=== PATIENT | male | born 1965 | race Caucasian/White ===

== ENCOUNTER 2017-10-07 01:43 | Inpatient (IN) | payer SELFPAY ==
[2017-10-07] MEDS: SUCCINYLCHOLINE CHLORIDE 100 MG/5 ML SYG IV (02:02)
[2017-10-07] MEDS: SODIUM CHLORIDE 0.9% 500 ML BAG IV* (02:02)
[2017-10-07] MEDS ORDERED: PROPOFOL 100 ML (02:13)
[2017-10-07 02:32] LABS: ADD MAN DIFF? NO
[2017-10-07 02:57] LABS: INR 3.91; PT RATIO 3.1
[2017-10-07 02:58] LABS: PARTIAL THROMBOPLASTIN TIME 37.5 Sec (25.0-35.0)
[2017-10-07] MEDS: PROPOFOL 100 ML IV (03:42)
[2017-10-07] MEDS: NORepinephrine 8MG/250 ML (PMX 250 ML IV ×2 (03:43→07:21)
[2017-10-07] MEDS: VECURONIUM 100 MG in DEXTROSE 5% 100 ML IV (03:44)
[2017-10-07 04:01] LABS: AADO2 Arterial 384.8 mmHg (7.0-24.0); Allen Test ACCEPTAB; Arterial Base Excess -21.9 mmol/L (-3.0-3); Arterial Blood Gas Oxygen Sat 99.5 mmHG (95.0-98.0); Arterial COHb 0.8 % (0.0-3.0); Arterial Fraction of Oxyhgb 96.5 % (93.0-99.0); Arterial HCO3 6.8 mmol/L (22.0-26.0); Arterial MetHb 2.2 % (0.0-1.5); Arterial pCO2 26.6 mmhg (35-45); Blood Gas Low PEEP Setting 0 cmH2O; MODE VENT - AC/VC+; Site Right Radial
[2017-10-07 04:17] LABS: ABNORMAL IP MESSAGE 1; EOSINOPHILS # 0.1 10^3/ul (0.0-0.5); EOSINOPHILS % 0.6 % (0.0-7.0); HEMATOCRIT 12.4 % (42.0-52.0); LYMPHOCYTES # 4.1 10^3/ul (0.8-2.9); LYMPHOCYTES % 24.9 % (15.0-51.0); MEAN CORPUSCULAR HEMOGLOBIN 36.6 pg (29.0-33.0); MEAN CORPUSCULAR HGB CONC 29.8 g/dl (32.0-37.0); MEAN CORPUSCULAR VOLUME 122.8 fl (82.0-101.0); MEAN PLATELET VOLUME 13.2 fl (7.4-10.4); MONOCYTE # 1.4 10^3/ul (0.3-0.9); MONOCYTES % 8.4 % (0.0-11.0); NEUTROPHIL # 10.4 10^3/ul (1.6-7.5); NEUTROPHILS % 63.8 % (39.0-77.0); NUCLEATED RED BLOOD CELLS # 0.2 10^3/ul (0.0-0.0); NUCLEATED RED BLOOD CELLS% 1.4 /100WBC (0.0-0.0); PLATELET COUNT 99 10^3/UL (140-415); POSITIVE DIFF @See below; RED BLOOD COUNT 1.01 10^6/ul (4.70-6.10); RED CELL DISTRIBUTION WIDTH 17.8 % (11.5-14.5)
[2017-10-07 04:17] LABS: WHITE BLOOD COUNT 16.4 10^3/ul (4.8-10.8)
[2017-10-07] MEDS ORDERED: DOPamine-D5W 1.6 MG/ML 250 ML ×2 (04:21→08:20)
[2017-10-07 04:27] LABS: HEMOGLOBIN 3.7 g/dl (14.0-18.0)
[2017-10-07 04:28] LABS: PATH REVIEW? YES-PATH TO CONFIRM
[2017-10-07 04:30] LABS: ALANINE AMINOTRANSFERASE 53 IU/L (13-69); ALBUMIN 3.2 g/dl (3.3-4.9); ALKALINE PHOSPHATASE 58 IU/L (42-121); ASPARTATE AMINO TRANSFERASE 115 IU/L (15-46); BILIRUBIN,INDIRECT 6.2 mg/dl (0-1.1); BILIRUBIN,TOTAL 8.1 mg/dl (0.2-1.3); BLOOD UREA NITROGEN 18 mg/dl (7-20); CALCIUM 7.9 mg/dl (8.4-10.2); CHLORIDE 89 mmol/L (97-110); CREATININE 1.33 mg/dl (0.61-1.24); GLUCOSE 101 mg/dl (70-220); MAGNESIUM 2.2 mg/dl (1.7-2.5); PHOSPHORUS 6.9 mg/dl (2.5-4.9); POTASSIUM 5.4 mmol/L (3.5-5.1); SODIUM 125 mmol/L (135-144); TOTAL PROTEIN 7.2 g/dl (6.1-8.1)
[2017-10-07 04:33] LABS: TROPONIN-I 0.022 ng/ml (0.00-0.12)
[2017-10-07 04:34] LABS: PROTIME 40.1 Sec (11.9-14.9)
[2017-10-07 04:45] LABS: ANION GAP 36 (8-16); CARBON DIOXIDE < 5 mmol/L (21-31)
[2017-10-07] MEDS ORDERED: IPRATROPIUM (HFA) 12.9 GM INHALER INH (05:00)
[2017-10-07] MEDS ORDERED: ALBUTEROL HFA 8 GM INHALER INH (05:00)
[2017-10-07] MEDS ORDERED: ACETAMINOPHEN 650MG/20.3ML CUP PO (05:00)
[2017-10-07 05:21] LABS: ANISOCYTOSIS 3+ (0-0); BAND NEUTROPHILS #M 1.6 10^3/ul (0.0-0.6); BAND NEUTROPHILS % (M) 10 % (0-4); EOSINOPHILS % (M) 2 % (0-7); ERYTHROBLAST% (NRBC) (M) 4 % (0-0); LYMPHOCYTES #M 4.5 10^3/ul (0.8-2.9); LYMPHOCYTES % (M) 28 % (15-51); MONOCYTE #M 1.6 10^3/ul (0.3-0.9); MONOCYTES % (M) 10 % (0-11); PLATELET ESTIMATE DECREASED; POIKILOCYTOSIS 3+ (0-0); POLYCHROMASIA 3+ (0-0); SEG NEUT #M 8.5 10^3/ul (1.6-7.5); SEGMENTED NEUTROPHILS (M) % 50 % (39-77); SMUDGE%M 4 % (0-0)
[2017-10-07 05:28] LABS: IMMEDIATE SPIN CROSSMATCH 1 4
[2017-10-07] MEDS ORDERED: NA BICARBONATE 8.4% 50 ML SYG ×4 (05:42→07:00)
[2017-10-07] MEDS: SODIUM BICARBONATE (IV ADD) 150 MEQ in DEXTROSE 5% 850 ML IV (05:47)
[2017-10-07] MEDS: VASOPRESSIN 60 UNIT in DEXTROSE 5% 57 ML IV (05:47)
[2017-10-07] MEDS: PANTOPRAZOLE 40 MG INJ IV (05:54)
[2017-10-07 06:06] LABS: HAAIG REFLEX REFLEX FILED
[2017-10-07 06:50] LABS: PARTIAL THROMBOPLASTIN TIME 58.6 Sec (25.0-35.0); PROTIME 61.9 Sec (11.9-14.9); PT RATIO 4.8
[2017-10-07 06:50] LABS: ACETAMINOPHEN < 10.0 ug/ml (10.0-30.0)
[2017-10-07] MEDS ORDERED: PHENYLephrine 20MG IN 250 ML 250 ML IV (07:00)
[2017-10-07] MEDS ORDERED: EPINEPHrine 0.1 MG/ML SYG (07:00)
[2017-10-07 07:05] LABS: LACTATE DEHYDROGENASE 1019 IU/L (313-618)
[2017-10-07 07:15] LABS: LACTIC ACID 22.1 mmol/L (0.5-2.0)
[2017-10-07 07:24] LABS: HEPATITIS B SURFACE ANTIGEN NEGATIVE (NEGATIVE)
[2017-10-07] MEDS: PHENYLephrine 40 MG in DEXTROSE 5% 496 ML IV ×2 (07:34→09:50)
[2017-10-07 07:38] LABS: HEPATITIS B SURFACE ANTIBODY NEGATIVE (NEGATIVE)
[2017-10-07 07:41] LABS: HEPATITIS B CORE ANTIBODY NEGATIVE (NEGATIVE); HEPATITIS C VIRAL ANTIBODY NEGATIVE (NEGATIVE); HIV 1&2 ANTIBODY NEGATIVE (NEGATIVE)
[2017-10-07 07:47] LABS: INR 6.84
[2017-10-07 08:25] LABS: CARCINOEMBRYONIC ANTIGEN 4.9 ng/ml (0.0-5.0)
[2017-10-07] MEDS: DOPamine-D5W 1.6 MG/ML 250 ML IV (08:36)
[2017-10-07 08:54] LABS: SECOND ABO/RH TYPE 1 1
[2017-10-07 08:55] LABS: ALANINE AMINOTRANSFERASE 74 IU/L (13-69); ALBUMIN 1.7 g/dl (3.3-4.9); ALBUMIN/GLOBULIN RATIO 0.89; ALKALINE PHOSPHATASE 23 IU/L (42-121); ANION GAP 31 (8-16); ASPARTATE AMINO TRANSFERASE 169 IU/L (15-46); BILIRUBIN,INDIRECT 2.9 mg/dl (0-1.1); BILIRUBIN,TOTAL 4.3 mg/dl (0.2-1.3); BLOOD UREA NITROGEN 17 mg/dl (7-20); CALCIUM 6.6 mg/dl (8.4-10.2); CHLORIDE 90 mmol/L (97-110); CREATININE 1.67 mg/dl (0.61-1.24); GLUCOSE 88 mg/dl (70-220); POTASSIUM 4.9 mmol/L (3.5-5.1); SODIUM 124 mmol/L (135-144); TOTAL PROTEIN 3.6 g/dl (6.1-8.1)
[2017-10-07 08:58] LABS: CARBON DIOXIDE 8 mmol/L (21-31)
[2017-10-07 16:23] LABS: RETICULOCYTE RBC 0.71
[2017-10-07 16:23] LABS: PATH REVIEW CH; RETICULOCYTE COUNT # 0.088 X10^6 (0.020-0.110); RETICULOCYTE COUNT % 12.5 % (0.5-1.5)
== END 2017-10-07 10:09 | disposition expired | DRG 441 ==
LOC: E/R 01:43 → ICU 05:05
PROC: 5A12012 Performance of Cardiac Output, Single, Manual (ICD-10-PCS; principal; 2017-10-07)
PROC: 5A1935Z Respiratory Ventilation, Less than 24 Consecutive Hours (ICD-10-PCS; 2017-10-07)
PROC: 30233K1 Transfusion of Nonautologous Frozen Plasma into Peripheral Vein, Percutaneous Approach (ICD-10-PCS; 2017-10-07)
PROC: 30233N1 Transfusion of Nonautologous Red Blood Cells into Peripheral Vein, Percutaneous Approach (ICD-10-PCS; 2017-10-07)
DX: K72.90 Hepatic failure, unspecified without coma (principal); J96.90 Respiratory failure, unspecified, unspecified whether with hypoxia or hypercapnia; G93.49 Other encephalopathy; N17.9 Acute kidney failure, unspecified; D61.818 Other pancytopenia; D68.9 Coagulation defect, unspecified; E87.1 Hypo-osmolality and hyponatremia; E87.2 Acidosis; I46.9 Cardiac arrest, cause unspecified; D64.9 Anemia, unspecified; D75.89 Other specified diseases of blood and blood-forming organs; F10.10 Alcohol abuse, uncomplicated; E87.5 Hyperkalemia; F32.9 Major depressive disorder, single episode, unspecified; R57.8 Other shock; E80.6 Other disorders of bilirubin metabolism; E83.9 Disorder of mineral metabolism, unspecified; T68.XXXA Hypothermia, initial encounter; Z99.11 Dependence on respirator [ventilator] status
CPT/HCPCS: 31500; 36430; 36600; 70450; 71045; 80053; 80306; 82105; 82378; 82803; 82962; 83605; 83615; 83735; 84100; 84484; 85025; 85045; 85384; 85610; 85730; 86703; 86704; 86706; 86708; 86709; 86803; 86850; 86900; 86901; 86920; 87040; 87340; 87522; 92950; 93005; 94002; 96374; 96375; 96376; 99291-25